=== PATIENT | female | born 1965 | race Caucasian/White ===

== ENCOUNTER 2023-12-10 16:44 | Emergency (ER) | payer BC, SELFPAY ==
[2023-12-10 16:47] VITALS: BP 151/86
--- NOTE | 2023-12-10 19:02 | ED.GENMED ---
History of Present Illness
General
Chief Complaint: Musculo-Skeletal Complaint
Time Seen by Provider: 12/10/23 18:14
History of Present Illness
History of Present Illness:
58-year-old female with history of insulin-dependent diabetes and COPD presents to the emergency department for evaluation of left upper leg pain that has been ongoing for at least the past 2 to 3 weeks. She notes that she was admitted to [facility]
Hospital earlier this month cardiac problems, during that time she was having difficulty walking but did not have her leg evaluated. Denies any falls or trauma. Denies any low back pain. No loss of bladder function. She is on chronic 15 mg
oxycodone every 4 hours and has been taking anti-inflammatories as well as Tylenol and lidocaine patches without relief.
Review of Systems
Review of Systems
Allergies reviewed?: Yes
All Other Systems: ROS reviewed and negative except as documented in HPI and ROS
Phy Exam
Physical Exam
Physical Exam:
GEN: Well appearing, NAD, WDWN
HEENT: Oral mucosa moist, no scleral icterus
Cardiac: Regular rate
Lung: No respiratory distress, no tachypnea
MSK: No gross deformity or injuries. Bilateral hip and pelvic range of motion is normal with no restriction. Patient has normal strength and is able to perform a straight leg raise. Patellar reflexes 2+ bilaterally left upper leg is grossly
nontender to palpation
Skin: Good color, no pallor or jaundice, no rashes
Neuro: AO x3, moves all extremities freely
Psych: Calm, cooperative
Course
Orders/Labs/Results
Orders:
Orders
12/10/23 19:01
Diazepam [Valium] 5 mg PO NOW STA
Ketorolac [Toradol] 30 mg IM NOW STA
CR Lumbar Spine Comp Min 4 Vw* Urgent
Comment:
Reason For Exam: L radiculopathy
Vital Signs
Initial and Last Documented VS:
Initial Vital Signs
Temp Pulse Resp BP Pulse Ox
98.2 F 111 16 151/86 95
12/10/23 16:47 12/10/23 16:47 12/10/23 16:47 12/10/23 16:47 12/10/23 16:47
Last Documented Vital Signs
Temp Pulse Resp BP Pulse Ox
98.2 F 111 16 151/86 95
12/10/23 16:47 12/10/23 16:47 12/10/23 16:47 12/10/23 16:47 12/10/23 16:47
MDM/Problems Addressed
MDM/Problems Addressed:
Given patient's benign exam I suspect this is lumbar radiculopathy. No signs of leg ischemia and no edema to suggest DVT. Recommend outpatient primary care follow-up to discuss advanced imaging
*Critical Care Note
Total Time (30-74mins, 75-104mins- exclusive of procedures): Not Applicable
ED Attending Note
-
Portions of this chart may have been created with voice recognition software.� Occasional wrong word or��sound alike� substitutions may have occurred due to the inherent limitations of voice recognition software.
Discharge Plan
Departure
Patient Disposition: Home (Routine Discharge)
Date of Disposition: 12/10/23
Time of Disposition: 20:28
Patient with high blood pressure during this ER visit?: No
Discharge Problem:
Acute left lumbar radiculopathy
Instructions: Radiculopathy (DC)
Referrals:
Desmond De Leon, DO [Family Provider] -
Stand Alone Forms: Return to Work
Activity Restrictions/Additional Instructions:
Prednisone 50mg daily for 5 days then 1/2 tablet daily for 5 days
Interventions
Interventions:
*Risk Screen - Suicide Last Done: 12/10/23 20:19
*General Assessment Last Done: 12/10/23 20:18
*Neglect/Abuse Screening Last Done: 12/10/23 20:18
ED- Fall Risk Assessment Last Done: 12/10/23 20:34
*ED COVID-19 Vaccine History Last Done: 12/10/23 20:19
*Nursing Disposition Last Done: 12/10/23 20:38
ED-Musculoskeletal Assessment Last Done: 12/10/23 18:40
Discharge Date and Time
Discharge Date/Time: 12/10/23 20:38
Print Language: BELARUSIAN
[2023-12-10] MEDS: TORADOL 30 MG IM (19:08)
[2023-12-10] MEDS: VALIUM 5 MG PO (19:08)
== END 2023-12-10 20:38 | disposition home or self-care (01) ==
LOC: EMR 16:44
PROVIDERS: EMERGENCY PHYSICIAN Student in an Organized Health Care Education/Training Program; FAMILY PHYSICIAN Family Medicine
DX: M54.16 Radiculopathy, lumbar region (principal); E11.9 Type 2 diabetes mellitus without complications; J44.9 Chronic obstructive pulmonary disease, unspecified; Z79.4 Long term (current) use of insulin
CPT/HCPCS: 96372; 99284; 72110